=== PATIENT | female | born 1960 | race Caucasian/White ===

== ENCOUNTER → 2019-08-10 11:14 | Outpatient (CLI) | payer OTHER, SELFPAY ==
[2019-06-27 15:17] VITALS: BMI 26.4
[2019-08-10 13:07] LABS: Cholesterol 181 mg/dL (200); High Density Lipoprotein 66 mg/dL; Triglycerides 74 mg/dL; Very Low Density Lipoprotein 15 mg/dL (5-40)
== END ==
PROVIDERS: PCP Family Medicine; Referring Provider Family Medicine; Visit Provider Family Medicine
DX: E78.5 Hyperlipidemia, unspecified (principal)
CPT/HCPCS: 36415; 80061

== ENCOUNTER → 2021-03-26 15:39 | Outpatient (CLI) | payer OTHER, SELFPAY ==
[2021-03-26 17:11] LABS: ALB/GLOB Ratio 0.8 RATIO (0.9-2.4); AST(SGOT) 20 U/L (15-37); Alanine Aminotransfer ALT/SGPT 29 U/L (13-56); Albumin, Serum 3.4 g/dL (3.2-5.0); Alkaline Phosphatase 131 U/L (45-117); Anion Gap 7 (5-15); BUN 15 mg/dL (7-18); BUN/Creat Ratio 19.8 RATIO (10-20); Calcium,Total 8.9 mg/dL (8.5-10.1); Chloride 107 mmol/L (98-107); Creatinine, Serum 0.76 mg/dL (0.55-1.02); EST Glomerular Filtration Rate 83 mL/min (>60); Est Glom Filt Rate - Afr Amer 101 mL/min (>60); Globulin 4.1 g/dL (2.2-4.2); Glucose 91 mg/dL (74-106); Protein, Total 7.5 g/dL (6.4-8.2); Sodium Level 140 mmol/L (136-145)
== END ==
PROVIDERS: PCP Family Medicine; Referring Provider Family Medicine; Visit Provider Family Medicine
DX: E78.5 Hyperlipidemia, unspecified (principal)
CPT/HCPCS: 36415; 80053

== ENCOUNTER 2021-06-25 14:18 | Outpatient (CLI) | payer BC, SELFPAY ==
--- NOTE | 2021-06-25 14:21 | RAD_ITS ---
STUDY: X-RAY - LEFT FOOT CLINICAL: Female, 60 years old. Foot pain TECHNIQUE: 3 view(s) of the foot. COMPARISON: None. FINDINGS: There is an enthesophyte involving the posterior superior calcaneus at the site of insertion of the Achilles tendon. Small plantar spur. Normal visualized subtalar, talonavicular, calcaneocuboid, tarsal and tarsometatarsal articulations. Normal metatarsi. There is degenerative arthrosis of the metatarsophalangeal joint of the hallux . There is a bipartite tibial sesamoid. Normal interphalangeal joint of the great toe. Normal phalanges of the great toe. Normal second through fifth metatarsophalangeal joints. Normal interphalangeal joints and phalanges of the lesser toes. The soft tissue structures are unremarkable. RAD/Foot min 3 Views IMPRESSION: Degenerative changes at the first metatarsophalangeal joint. Calcaneal spurs. Electronically Signed: Carlo Hernandez MD at 15:30 EST , Service support ,
== END 2021-06-25 23:59 | disposition short-term general hospital (02) ==
LOC: MTRAD 14:20
PROVIDERS: PCP Family Medicine; Referring Provider Family Medicine; Visit Provider Family Medicine
DX: M79.672 Pain in left foot (principal)
CPT/HCPCS: 73630

== ENCOUNTER 2021-07-23 11:00 | Outpatient (RCR) | payer BC, SELFPAY ==
--- NOTE | 2021-07-09 15:39 | HP.PTEVAL_ITS ---
Patient's Visit Information FILI MARRUFO is a 60 year old F referred to Physical Therapy by Dr. Willian Lucero DPM with a diagnosis of LEFT PERNOEUS BREVIS TENDONOATHY. Date of Evaluation: 07/09/21 Physical Therapist: Jeferson Navarro, PT, Cert MDT, OCS - Visit Plan Frequency: 1x/Week Duration: 4-6 Weeks Plan: PT INTERVENTIONS WITH STRETCHING G-S ,ECCENTIC STRENGTHENING PERONEOUS ,PROPRIOCEPTION - Subjective This 60 y/o female presents to physical therapy with left peroneus brevis tendonopathy . Patient has had ~ 2 months without predisposing factors. Initially, tried over counter orthotics. Patient seen DR recommended PT for eccentric strengthening. Patient did have incident of sleeping and falling in summer. Patient does state she supinates. Patient reports getting . Patient located lateral foot peroneus. Patient was provide meloxicam. Aggravating being on it too long. Denies paresthesia/tingling. Patient goals to learn ex's. Patient had x-rays had spur on heel. 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 SOCIAL: single - Objective POSTURE: PES CAVUS. GAIT: reciprocal pattern normal jordi. NEURO: denies paresthesia/tingling. PALAPTION: unremarkable. EDEMA: absent. AROM: dorsiflexion 5 degrees ,eversion 5 degrees, inversion 40 degrees , plantarflexion 65 degrees. MMT: ankle dorsiflexion, peroneus , posteriortibials 4/5 ,G-S 4/5. FLEXABLITY : min tight G-S. PROPRIOCEPTION: INTACT - Balance/Special Test Scores Lower Extremity Functional Score: 59 - Goals Goal 1:: Patient to be I with HEP strengthening ankle Goal Time Frame: 4-6 Weeks Goal 2:: Patient to demonstrated 75% improve of left ankle for gait Goal Time Frame: 4-6 Weeks Goal 3:: Patient to increase strength ankle 5/5 to improve function Goal Time Frame: 4-6 Weeks Goal 4:: Patient to improve LFES score by 5 points to improve gait and strength Goal Time Frame: 4-6 Weeks - Rehabilitation Potential Physical Therapy Diagnosis: This patient developed peroneus brevis tendinopathy with Rehabilitation Potential: Good - Anticipated Interventions Patient/Client Instruction: Educate patient on: Condition, Plan of Care For the Purpose of:: To decrease pain, To increase ROM, To improve muscle performance and motor function, To increase tolerance to activity/condition/position, To improve ability of physical actions for home/community/work/leisure, To improve health of tissue, To decrease soft tissue restriction, To increase flexibility/ROM Therapeutic Exercise to Include: Strength training, Balance training, Coordination, Active ROM Comment: PROPRIOCEPTION For the Purpose of:: To decrease pain, To increase ROM, To improve muscle performance and motor function, To improve ability to perform ADL's, To increase tolerance to activity/condition/position, To improve ability of physical actions for home/community/work/leisure, To decrease soft tissue restriction, To increase flexibility/ROM Thank you for the opportunity to evaluate your patient. For Medicare and Medicare HMO plans, please review the plan of care and approve it. It will need to be FAXED BACK to us at [phone] for Medicare purposes. For Medicare only, by signing this I certify the plan of care. Please let me know if there are questions or concerns regarding this plan of care. Physician Signature: Date:
--- NOTE | 2021-12-09 13:39 | HP.PTDCNRP_ITS ---
FLII MARRUFO was seen in my office for initial evaluation on 07/09/21. The following Plan of Care was established for this patient: Initial Frequency: 1x/Week Initial Duration: 4-6 Weeks Patient/Client Instruction: Educate patient on: Condition, Plan of Care For the Purpose of:: To decrease pain, To increase ROM, To improve muscle performance and motor function, To increase tolerance to activity/condition/position, To improve ability of physical actions for home/community/work/leisure, To improve health of tissue, To decrease soft tissue restriction, To increase flexibility/ROM Therapeutic Exercise to Include: Strength training, Balance training, C oordination, Active ROM For the Purpose of:: To decrease pain, To increase ROM, To improve muscle performance and motor function, To improve ability to perform ADL's, To increase tolerance to activity/condition/position, To improve ability of physical actions for home/community/work/leisure, To decrease soft tissue restriction, To increase flexibility/ROM This patient was last seen in our office . Pertinent comments regarding their Physical therapy will appear below: Patient seen for peroneal tendonitis for strengthening and HEP THUS D/C At this point I will be discontinuing this patient from physical therapy. I would be happy to see this patient again in the future if found appropriate by the physician. Thank you! Jeferson Navarro, PT, Cert MDT, OCS Balance/Gait/Functional tests - Balance/Special Test Scores Lower Extremity Functional Score: 59
== END 2021-07-23 19:00 | disposition home or self-care (01) ==
LOC: PT 11:00
PROVIDERS: PCP Family Medicine; Referring Provider Podiatrist; Visit Provider Podiatrist
DX: M76.72 Peroneal tendinitis, left leg (principal)
CPT/HCPCS: 97110; 97162

== ENCOUNTER → 2022-03-24 | Outpatient (CLI) | payer OTHER, SELFPAY ==
[2022-03-24 18:08] LABS: ALB/GLOB Ratio 0.9 RATIO (0.9-2.4); AST(SGOT) 23 U/L (15-37); Alanine Aminotransfer ALT/SGPT 25 U/L (13-56); Albumin, Serum 3.6 g/dL (3.2-5.0); Alkaline Phosphatase 134 U/L (45-117); Anion Gap 10 (5-15); BUN 14 mg/dL (7-18); BUN/Creat Ratio 17.3 RATIO (10-20); Calcium,Total 9.4 mg/dL (8.5-10.1); Chloride 106 mmol/L (98-107); Cholesterol 245 mg/dL (200); Creatinine, Serum 0.81 mg/dL (0.55-1.02); EST Glomerular Filtration Rate 77 mL/min (>60); Est Glom Filt Rate - Afr Amer 93 mL/min (>60); Glucose 98 mg/dL (74-106); High Density Lipoprotein 66 mg/dL; Potassium 4.1 mmol/L (3.5-5.1); Protein, Total 7.6 g/dL (6.4-8.2); Sodium Level 140 mmol/L (136-145); Triglycerides 101 mg/dL; Very Low Density Lipoprotein 20 mg/dL (5-40)
== END | disposition home or self-care (01) ==
LOC: BIMLAB 16:10
PROVIDERS: PCP Family Medicine; Referring Provider Family Medicine; Visit Provider Family Medicine
DX: E78.5 Hyperlipidemia, unspecified (principal)
CPT/HCPCS: 36415; 80053; 80061

== ENCOUNTER 2022-03-25 05:34 | Emergency (ER) | payer OTHER, SELFPAY ==
[2022-03-25 05:36] VITALS: BP 146/96; PULSE 83; RESP 18; TEMP 36.6; O2SAT 97; BMI 28.1
--- NOTE | 2022-03-25 06:47 | EDS_ITS ---
HPI History of Present Illness Chief Complaint: Laceration Narrative Narrative: Patient is a 61-year-old female with history of hyperlipidemia. She was at work this morning when she stumbled and fell backwards striking the back of her head on a small table. She denies any loss of consciousness or blood thinner use or history of bleeding disorder. She states she was able to get back up shortly after the fall but when she put her hand to her head there was blood and was concerned that she may need some type of closure such as sutures or madison presents for evaluation. She also reports she has noticed some pain in her low back diffusely that worsens with motion after the fall. However she denies any numbness tingling or weakness or any hematuria. [facility] Medical History COVID-19 GERD (gastroesophageal reflux disease) Hyperlipemia No pertinent past medical history Home Medications atorvastatin 20 mg tablet 20 mg PO DAILY #90 tabs 03/24/22 [Rx Last Taken Unknown] omeprazole magnesium 20 mg tablet,delayed release (Prilosec OTC) 20 mg PO DAILY 03/24/22 [History Last Taken Unknown] methocarbamol 500 mg tablet 1,000 mg PO 4X/DAY PRN PRN Muscle pain/spasm #56 tabs 03/25/22 [Rx Last Taken Unknown] Allergy/AdvReac Type Severity Reaction Status Date / Time Sulfa (Sulfonamide Allergy Intermediate Rash Verified 03/25/22 05:40 Antibiotics) Family History Grandfather Colon cancer Diabetes Myocardial infarction Cancer skin Father Diabetes Myocardial infarction Grandmother Breast cancer Other Hyperlipemia Osteoporosis Surgical History History of colonoscopy Social History Smoking Status: Never smoker alcohol intake: current alcohol intake frequency: holidays/special occasions only substance use type: does not use what type of physical activity do you participate in: none ROS ROS ED Constitutional Constitutional ED: Denies chills or fever(s) Eyes Eyes: Denies change in vision ENT ENT ED: Denies sore throat Cardiovascular Cardiovascular: Denies chest pain Respiratory/Chest Respiratory/Chest: Denies cough or dyspnea Gastrointestinal Gastrointestinal: Denies abdominal pain, diarrhea, nausea or vomiting Genitourinary Genitourinary ED: Denies dysuria or hematuria Musculoskeletal Musculoskeletal: Reports back pain; Denies neck pain Integumentary Reports other Details: Positive scalp laceration ; Denies rash Neurologic Neurologic: Denies headache(s), paresthesias or weakness Hematologic/Lymphatic Hematologic/Lymphatic: Denies easy bleeding or easy bruising EXAM Physical Exam Const Vital Signs: 03/25/22 05:36 Temperature 97.9 F Temperature Source Temporal Pulse Rate 83 Respiratory Rate 18 Blood Pressure 146/96 H Blood Pressure Mean 112 Pulse Ox 97 Oxygen Delivery Method Room Air Positive well nourished and well developed General Appearance ED: well developed HEENT HEENT Narrative: Patient has a Y-shaped subcutaneous layer deep laceration to the upper portion of the occipital scalp. There is no foreign body. There is minimal ooze of blood noted. The laceration is approximately 2.5 cm in size. There is a small 2 x 2 centimeter hematoma surrounding the laceration. No signs of depressed or basilar skull fracture Eyes PERRL and EOMs intact bilaterally Neck supple Neck Narrative: No bony deformity or step-off of the cervical spine no midline pain with palpation Resp normal respiratory effort and clear to auscultation bilaterally Cardio regular rate and regular rhythm Back/Spine Back/Spine Narrative: No bony deformity or step-off of the thoracic or lumbar spine no midline pain with palpation. No saddle anesthesia. Negative straight leg raise. No clonus or Babinski. Patellar reflexes are plus 2 out of 4 bilaterally are equal and symmetric. Extremity normal to inspection Neuro oriented x3 and CN's II-XII intact bilaterally Sensorium / Orientation: alert Psych mental status grossly normal Skin Skin Narrative: Scalp hematoma and laceration as documented above MDM MDM MDM Narrative Medical decision making narrative: Patient presented to the ER after mechanical fall so there was no need for cardiac or syncope work-up. She did strike her head around the occiput and we discussed obtaining a head CT to ensure there is no underlying skull fracture or brain bleed. Patient does not take blood thinners or have a bleeding disorder she did not lose consciousness nor does she have signs or symptoms consistent with a concussion. She states that this time as my clinical suspicion for skull fracture or brain bleed is low she does not want a CT obtained. We also discussed obtaining an x-ray of the low back as she has pain after the fall but as there is no midline pain along the spine she does not wish to have an x-ray either. Therefore patient will prescribe Robaxin to help with muscular spasm from the fall. Her wound was stapled as documented below. We discussed possibly updating tetanus but as concern for this is low based on the trauma she does not want that given. Therefore at this time as the wound is closed there are no other signs of trauma and no obvious changes to suggest skull fracture or brain bleed she is safe for discharge Patient had her scalp wound cleaned with chlorhexidine. The laceration was anesthetized with 5 mL of 2% lidocaine with epinephrine in local fashion. Then 8 madison were placed across the laceration/wound to bring the edges together good approximation. Patient tolerated the procedure well without complication. Discharge Plan Triage Chief Complaint: Laceration ED Provider: Paul Monique Dx/Rx/DC Orders Clinical Impression: Closed head injury, Laceration of occipital scalp, Acute lumbosacral myofascial strain, Accidental fall Instructions: Understanding Lumbosacral Strain, ED Laceration: All Closures Prescriptions: New methocarbamol 500 mg tablet 1,000 mg PO 4X/DAY PRN PRN (Reason: Muscle pain/spasm) Qty: 56 0RF No Action omeprazole magnesium [Prilosec OTC] 20 mg tablet,delayed release (DR/EC) 20 mg PO DAILY atorvastatin 20 mg tablet 20 mg PO DAILY Qty: 90 2RF Stand Alone Forms: Work Status Form Primary Care Provider: Alejandro Granda Referrals: Alejandro Granda, DO [Primary Care Provider] - Activity Restrictions/Additional Instructions: Please continue to stretch and heat your low back to help reduce pain and speed healing. Please see your family doctor return to the ER or contact Workmen's Compensation to have your madison removed in 10 to 14 days Disposition Disposition: Home, Self Care
== END 2022-03-25 07:08 | disposition home or self-care (01) ==
PROVIDERS: Emergency Provider Emergency Medicine; PCP Family Medicine; Visit Provider Emergency Medicine
DX: S01.01XA Laceration without foreign body of scalp, initial encounter (principal); S39.012A Strain of muscle, fascia and tendon of lower back, initial encounter; E78.5 Hyperlipidemia, unspecified; W18.09XA Striking against other object with subsequent fall, initial encounter; Z79.899 Other long term (current) drug therapy
CPT/HCPCS: 12001; 99283

== ENCOUNTER → 2022-11-30 | Outpatient (CLI) | payer OTHER, SELFPAY ==
[2022-11-30 17:41] LABS: ALB/GLOB Ratio 1.1 RATIO (0.9-2.4); AST(SGOT) 29 U/L (15-37); Alanine Aminotransfer ALT/SGPT 26 U/L (13-56); Albumin, Serum 3.7 g/dL (3.2-5.0); Alkaline Phosphatase 104 U/L (45-117); Anion Gap 8 (5-15); BUN 17 mg/dL (7-18); BUN/Creat Ratio 24.4 RATIO (10-20); Calcium,Total 9.6 mg/dL (8.5-10.1); Chloride 106 mmol/L (98-107); Cholesterol 177 mg/dL (200); EST Glomerular Filtration Rate 91 mL/min (>60); Est Glom Filt Rate - Afr Amer 110 mL/min (>60); Globulin 3.5 g/dL (2.2-4.2); Glucose 88 mg/dL (74-106); High Density Lipoprotein 61 mg/dL; Potassium 4.6 mmol/L (3.5-5.1); Protein, Total 7.2 g/dL (6.4-8.2); Sodium Level 140 mmol/L (136-145); Triglycerides 69 mg/dL; Very Low Density Lipoprotein 14 mg/dL (5-40)
== END | disposition home or self-care (01) ==
LOC: BIMLAB 15:52
PROVIDERS: PCP Family Medicine; Referring Provider Family Medicine; Visit Provider Family Medicine
DX: E78.5 Hyperlipidemia, unspecified (principal)
CPT/HCPCS: 36415; 80053; 80061

== ENCOUNTER → 2023-12-30 | Outpatient (CLI) | payer OTHER, SELFPAY ==
[2023-12-30 14:07] LABS: ALB/GLOB Ratio 1.1 RATIO (0.9-2.4); AST(SGOT) 19 U/L (15-37); Alanine Aminotransfer ALT/SGPT 23 U/L (13-56); Albumin, Serum 3.5 g/dL (3.2-5.0); Alkaline Phosphatase 108 U/L (45-117); Anion Gap 6 (5-15); BUN 13 mg/dL (7-18); BUN/Creat Ratio 21.9 RATIO (10-20); Calcium,Total 9.1 mg/dL (8.5-10.1); Chloride 105 mmol/L (98-107); Cholesterol 159 mg/dL (200); Creatinine, Serum 0.59 mg/dL (0.55-1.02); EST Glomerular Filtration Rate 109 mL/min (>60); Est Glom Filt Rate - Afr Amer 132 mL/min (>60); Globulin 3.1 g/dL (2.2-4.2); Glucose 92 mg/dL (74-106); High Density Lipoprotein 67 mg/dL; Potassium 4.5 mmol/L (3.5-5.1); Protein, Total 6.6 g/dL (6.4-8.2); Sodium Level 141 mmol/L (136-145); Triglycerides 63 mg/dL; Very Low Density Lipoprotein 13 mg/dL (5-40)
== END | disposition home or self-care (01) ==
LOC: BIMLAB 08:10
PROVIDERS: PCP Family Medicine; Referring Provider Family Medicine; Visit Provider Family Medicine
DX: E78.5 Hyperlipidemia, unspecified (principal)
CPT/HCPCS: 36415; 80053; 80061

== ENCOUNTER 2025-01-28 07:51 | Day surgery (SDC) | payer OTHER, SELFPAY ==
[2025-01-28] VITALS (8 sets, daily range): BP systolic 81–104; BP diastolic 39–62; PULSE 61–66; RESP 16; TEMP 36.1–36.6; O2SAT 94–100; BMI 22.6
[2025-01-28] MEDS: Lactated Ringers 1,000 ML 15 ML IV (08:32)
--- NOTE | 2025-01-28 08:46 | PRE.ANES_ITS ---
ASA Classification* ASA Classification ASA Classification: 2 Assessment & Plan Anesthesia* Anesthesia Assessment Anesthesia Assessment: Discussed sedation and/or anesthesia options, risks, benefits, and alternatives with patient/parents/legal guardian/POA. Questions invited. The patient/parents/legal guardian/POA seems to understand and agrees to proceed with anesthesia plan. Reviewed the physical assessment, medical history, allergy history and patient home medications list prior to surgery/procedure/anesthetic and documented any changes. Performed airway and anesthesia risk assessments. Anesthesia Type Anesthesia Type: MAC History Source History Obtained from:: Patient and Chart Anesthesia Focused Assessment* Temperature: 97 F Pulse Rate: 66 Blood Pressure: 100/56 Respiratory Rate: 16 Pulse Ox: 100 Oxygen Delivery Method: Room Air Airway Assessment Mouth opens: >3 cm Mallampati Score: IV Teeth Condition: Caps/Crowns (Patient has several crowns. They all tight they are all tight) Neck Range of motion (ROM): Full ROM Labs Anesthesia Preop lab: CBC CHEMISTRY Potassium 4.5 mmol/L (3.5-5.1) 12/30/23 08:10 12/30/23 Sodium 141 mmol/L (136-145) 12/30/23 08:10 12/30/23 BUN 13 mg/dL (7-18) 12/30/23 08:10 12/30/23 Creatinine 0.59 mg/dL (0.55-1.02) 12/30/23 08:10 12/30/23 Glucose 92 mg/dL (74-106) 12/30/23 08:10 12/30/23 COAG Pre-Assessment Diagnosis/Proposed Procedure Planned Operative Procedure(s): CSCOPE Anesthesia History Anesthesia History - accounting representative: Anesthesia History - accounting representative Hx Hospitalization No 01/24/25 15:37 Any Problems With Anesthesia No 01/24/25 15:37 Cholinesterase deficiency No 01/24/25 15:37 You/Your Family Experience No 01/24/25 15:37 fever (hyperthermia) with Relationship Recent Exposure to Contagious No 01/28/25 08:27 Disease Does patient have nerve No 01/24/25 15:37 stimulator Patient instructed to have device shut off --Does patient have Pacemaker No 01/28/25 08:27 or ICD? When Was Last Pacemaker Check QUESTION #4 FULL TEXT: You/Your Family Experience fever (hyperthermia) with Anesthesia Last Oral Intake Last Oral intake: Last Oral Intake NPO since 22:30 01/28/25 08:27 Meds taken in AM with sips of No 01/28/25 08:27 water? Meds patient instructed to take am of surgery PONV PONV - accounting representative: PONV - accounting representative Female Yes 01/24/25 15:37 HX of Motion Sickness Yes 01/24/25 15:37 HX of N/V After Surgery No 01/24/25 15:37 Non-Smoker Yes 01/24/25 15:37 Duration of Surgery greater No 01/24/25 15:37 than 60 minutes Number of Risk Factors 3 01/24/25 15:37 PONV Score Moderate Risk 01/24/25 15:37 Height & Weight Height & Weight: Anesthesia: Height & Weight Height 5 ft 5 in 01/28/25 08:27 Weight: 61.8 kg 01/28/25 08:27 Body Mass Index (BMI) 22.6 01/28/25 08:27 Respiratory Assessment Respiratory Assessment - accounting representative: Respiratory Tract Infection Hx - accounting representative Hx Respiratory Tract Infection No 01/24/25 15:37 STOP Sleep Apnea STOP Sleep Apnea - accounting representative: STOP Sleep Apnea - accounting representative Hx Hypertension No 01/24/25 15:37 Hx Sleep Apnea No 01/24/25 15:37 CPAP BIPAP Do you snore loudly (louder No 01/24/25 15:37 than talking or can be heard Do you often feel tired/ No 01/24/25 15:37 fatigued/ sleepy during daytime? Has anyone observed you stop No 01/24/25 15:37 breathing during sleep? STOP Results Negative 01/24/25 15:37 QUESTION #5 FULL TEXT : Do you snore loudly (louder than talking or can be heard through closed doors)? Tobacco Use History Tobacco Use History - accounting representative: Tobacco Use History - accounting representative Tobacco Use Smoking Status Never smoker 01/24/25 15:37 Hx Tobacco Use No 01/24/25 15:37 Years Smoking Packs Smoked per Day Smoking Cessation Date was within the last 15 years Hx Smoking Cessation Date Hx Smoking Cessation Counseling Hematologic Medial History Hematologic Hx - accounting representative: Hematologic Medical Hx - vocational rehabilitation specialist Hx of Blood Transfusion No 01/24/25 15:37 Hx of Transfusion in last 3 No 01/24/25 15:37 Months Date of Last Transfusion (if within last 3 months) Ever experience any problems No 01/24/25 15:37 with transfusion(s)? Specify any problems Hx of Preganancy in last 3 N/A 01/24/25 15:37 Months Nurse Filling Out Transfusion NBUCHER 01/24/25 15:37 & Questions: Date: 01/24/25 01/24/25 15:37 Time: 15:38 01/24/25 15:37 Patient unable to answer at this time (ie. confused, unrespo /Reproduction History /Reproductive History - accounting representative: /Reproductive Hx- accounting representative Hx Now No 01/24/25 15:37 Gestational Age (in weeks): EDC: Hx Hx Para Hx Section SAB No 01/24/25 15:37 Active Medications Active Medications: Current Medications Generic Name Dose Route Start Last Admin Trade Name Freq PRN Reason Stop Dose Admin Lactated Ringer's 1,000 mls @ 15 mls/hr 01/28/25 08:15 01/28/25 08:32 IV 15 mls/hr .Q48H JACLYN Administration PFSH Medical History Wears glasses Post-menopausal High cholesterol GERD (gastroesophageal reflux disease) Hyperlipemia COVID-19 No pertinent past medical history Home Medications ?Medication ?Instructions ?Recorded ?Last Taken ?Type omeprazole magnesium 20 mg 20 mg PO DAILY PRN gastric reflux 11/30/22 Unknown History tablet,delayed release (Prilosec OTC) atorvastatin 20 mg tablet 20 mg PO DAILY #90 tabs 12/1101/27/25 Rx Allergy/AdvReac Type Severity Reaction Status Date / Time Sulfa (Sulfonamide Allergy Intermediate Rash Verified 01/28/25 08:25 Antibiotics) Family History Grandfather Colon cancer Diabetes Myocardial infarction Cancer skin Father Diabetes Myocardial infarction Grandmother Breast cancer Other Hyperlipemia Osteoporosis Surgical History History of colonoscopy Social History adopted: No household members: spouse number of children: 2 current occupational status: employed current occupation: [employer] pets and animals: Yes (1) pets and animals: dog(s) sexually active: No Smoking Status: Never smoker alcohol intake: current alcohol intake frequency: holidays/special occasions only substance use type: does not use diet: low carbohydrate caffeine: Yes (1-4) Type: coffee what type of physical activity do you participate in: none seatbelt use: always do you feel safe at home: Yes Review of Systems (Anesthesia) ROS Narrative System reviewed and no additional complaints, except as documented.
--- NOTE | 2025-01-28 09:27 | HP.PCM_ITS ---
HPI - General General Date of Service: 01/28/25 HPI Narrative FILI MARRUFO, is a 64 F who presents for screening colonoscopy last colonoscopy was greater than 5 years ago- recommended repeat in 5 years. Do not have the actual reports. patient's grandfathers both had colon cancer patient's liana also had a colostomy in her 20s but not blood relative. Patient has bowel movements daily denies any blood. Patient denies any chronic abdominal pain/nausea/vomiting/reflux. [facility] Medical History Wears glasses Post-menopausal High cholesterol GERD (gastroesophageal reflux disease) Hyperlipemia COVID-19 No pertinent past medical history Home Medications ?Medication ?Instructions ?Recorded ?Last Taken ?Type omeprazole magnesium 20 mg 20 mg PO DAILY PRN gastric reflux 11/30/22 Unknown History tablet,delayed release (Prilosec OTC) atorvastatin 20 mg tablet 20 mg PO DAILY #90 tabs 12/1101/27/25 Rx Allergy/AdvReac Type Severity Reaction Status Date / Time Sulfa (Sulfonamide Allergy Intermediate Rash Verified 01/28/25 08:25 Antibiotics) Family History Grandfather Colon cancer Diabetes Myocardial infarction Cancer skin Father Diabetes Myocardial infarction Grandmother Breast cancer Other Hyperlipemia Osteoporosis Surgical History History of colonoscopy Social History adopted: No household members: spouse number of children: 2 current occupational status: employed current occupation: [employer] pets and animals: Yes (1) pets and animals: dog(s) sexually active: No Smoking Status: Never smoker alcohol intake: current alcohol intake frequency: holidays/special occasions only substance use type: does not use diet: low carbohydrate caffeine: Yes (1-4) Type: coffee what type of physical activity do you participate in: none seatbelt use: always do you feel safe at home: Yes Past Medical/Surgical History Planned Operation Planned Operative Procedure(s): CSCOPE Previous Hospitalizations/Surgeries HX Hospitalizations: No Any Problems With Anesthesia: No You/Your Family Experience Fever (Hyperthermia) With Anes: No Cholinesterase deficiency: No Cardiovascular Hx Chest Pain within Last 2 months: No Hx Heart Attack: No Hx Hypertension: No Hx Cardiac Surgery/Stents/Etc.: No Respiratory Hx Chronic Obstructive Pulmonary Disease (COPD): No Hx Sleep Apnea: No Hx Respiratory Tract Infection/Cold (presently): No Do You Snore Loudly (louder than talking or can be heard): No Do You Often Feel Tired/ Fatigued/ Sleepy Dring Daytime?: No Has Anyone Observed You Stop Breathing During Sleep?: No Result (for STOP score): Negative Hx Smoking: No Smoking Status: Never smoker Neurological Hx Seizures: No Hx Multiple Sclerosis: No Does patient have nerve stimulator: No Blood Disorder Hx Anemia: No Reproduction : No Genitourinary Hx Dialysis: No Musculoskeletal Hx Arthritis: No Endocrine Hx Diabetes: No Thyroid Disease: No Psycho/Social Hx Depression: No Hx Dementia: No Miscellaneous Recent Exposure to Contagious Disease: No Allergies Sulfa (Sulfonamide Antibiotics) Allergy (Intermediate, Verified 01/28/25 08:25) Rash Discharge Is Pt Admitted From a Retirement, or a Senior Living: No After D/C, Where Do you Plan to Go: Return Home Vital Signs Vital Signs Vital Signs: 01/28/25 08:27 01/28/25 08:27 01/28/25 08:50 Temperature 97 F L 97 F L Temperature Source Temporal Pulse Rate 66 66 Respiratory Rate 16 16 Respiratory Pattern Normal Blood Pressure 100/56 L 100/56 L Blood Pressure Mean 70 Blood Pressure Source Monitor Blood Pressure Position Semi-Fowlers Blood Pressure Location Right Arm Pulse Ox 100 100 Oxygen Delivery Method Room Air Room Air Weight Weight: 136 lb 3.931 oz Body Mass Index (BMI) 22.6 Physical Exam Const alert, oriented x3 and no apparent distress HEENT normocephalic and head/scalp atraumatic Resp normal respiratory effort Cardio regular rate GI soft to palpation and non-tender; Negative for non-distended Palpation: Negative for guarding Extremity no clubbing, cyanosis or edema Skin no rashes or lesions noted Neuro CN's II-XII intact bilaterally Psych mental status grossly normal Assessment & Plan Assessment/Plan (1) Family history of colon cancer: Surgery Risks - Colonoscopy I discussed with the patient the risks of the procedure: Yes Risks Include but are not Limited To: Risks include but are not limited to: Bleeding, perforation requiring further surgery, inability to complete colonoscopy requiring barium enema.
--- NOTE | 2025-01-28 10:12 | OP.COLON_ITS ---
Patient Name: Muriel Romo Procedure Date: 01/28/2025 9:36 AM Date of : 1960 Age: 64 Procedure: Colonoscopy Indications: Family history of colon cancer in multiple second-degree relatives Providers: Sravanthi White MD Referring MD: Alejandro Granda Medicines: Monitored Anesthesia Care Patient Profile: This is a 64 year old female. Last Colonoscopy: June 2018. Complications: No immediate complications. Procedure: Pre-Anesthesia Assessment: - Prior to the procedure, a History and Physical was performed, and patient medications and allergies were reviewed. The patient's tolerance of previous anesthesia was also reviewed. The risks and benefits of the procedure and the sedation options and risks were discussed with the patient. All questions were answered, and informed consent was obtained. Prior Anticoagulants: The patient has taken no anticoagulant or antiplatelet agents. ASA Grade Assessment: Per anesthesia. After reviewing the risks and benefits, the patient was deemed in satisfactory condition to undergo the procedure. After I obtained informed consent, the scope was passed under direct vision. Throughout the procedure, the patient's blood pressure, pulse, and oxygen saturations were monitored continuously. The pediatric colonoscope was introduced through the anus and advanced to the cecum, identified by the appendiceal orifice, ileocecal valve and palpation. The colonoscopy was performed without difficulty. The patient tolerated the procedure well. The quality of the bowel preparation was good. Scope In: 9:45:30 AM Scope Withdrawal Time 0 hours 8 minutes 2 seconds Scope Out: 10:04:51 AM Total Procedure Duration Time 0 hours 19 minutes 21 seconds Findings: The perianal and digital rectal examinations were normal. Multiple small-mouthed diverticula were found in the sigmoid colon. The entire examined colon appeared normal on direct and retroflexion views. Impression: - Diverticulosis in the sigmoid colon. - The entire examined colon is normal on direct and retroflexion views. - No specimens collected. Recommendation: - Discharge patient to home. - Resume previous diet. - Continue present medications. - Await pathology results. - Repeat colonoscopy in 10 years for screening purposes-both grandfathers >60 when diagnosed with colon cancer. Procedure Code(s): --- Professional --- 25010, PT, Colonoscopy, flexible; diagnostic, including collection of specimen(s) by brushing or washing, when performed (separate procedure) Diagnosis Code(s): --- Professional --- Z80.0, Family history of malignant neoplasm of digestive organs K57.30, Diverticulosis of large intestine without perforation or abscess without bleeding CPT copyright 2021 [employer]. All rights reserved. The codes documented in this report are preliminary and upon pipe fitter soft copper review may be revised to meet current compliance requirements. MD Sravanthi Camarena MD 01/28/2025 10:12:14 AM This report has been signed electronically. Number of Addenda: 0 Note Initiated On: 01/28/2025 9:36 AM
--- NOTE | 2025-01-28 10:12 | OP.PROVAT_ITS ---
01/28/2025 Alejandro Granda Re : Colonoscopy procedure for Muriel Romo Dear Dr. Granda This procedure was performed on Tuesday, January 28, 2025. My impressions and recommendations are as follows: Impressions : - Diverticulosis in the sigmoid colon. - The entire examined colon is normal on direct and retroflexion views. - No specimens collected. Recommendations : - Discharge patient to home. - Resume previous diet. - Continue present medications. - Await pathology results. - Repeat colonoscopy in 10 years for screening purposes-both grandfathers >60 when diagnosed with colon cancer. My findings are described in the full procedure note, which is enclosed. If I can be of further assistance, please feel free to contact me at Doctor phone number(s): , Work: . Sincerely, MD Sravanthi Camarena MD 01/28/2025 10:12:14 AM This report has been signed electronically.
--- NOTE | 2025-01-28 10:15 | PCM.POST.ANE ---
Anesthesia: Postop Eval I Current Vital Signs Temperature: 98 F Pulse Rate: 62 Blood Pressure: 104/47 Respiratory Rate: 16 Pulse Ox: 97 Oxygen Delivery Method: Room Air Assessment Airway patent: Yes Spontaneous unlabored respirations: Yes Mental status: Asleep nausea: No Vomiting: No Anesthesia Complication: No Fluid Hydration Crystalloid volume administer (ml): 700 Total IV fluid infused: 700 Progress Note Anesthesia document: Postop Eval 1 completed: Yes
== END 2025-01-28 10:59 | disposition home or self-care (01) ==
LOC: EN 07:52 → AC 07:53
PROVIDERS: PCP Family Medicine; Referring Provider Family Medicine; Visit Provider Surgery
PROC: 0DJD8ZZ Inspection of Lower Intestinal Tract, Via Natural or Artificial Opening Endoscopic (ICD-10-PCS; CPT 45378; principal; 2025-01-28 09:10)
DX: Z12.11 Encounter for screening for malignant neoplasm of colon (principal); E78.00 Pure hypercholesterolemia, unspecified; K57.30 Diverticulosis of large intestine without perforation or abscess without bleeding; Z80.0 Family history of malignant neoplasm of digestive organs; K21.9 Gastro-esophageal reflux disease without esophagitis; Z79.899 Other long term (current) drug therapy
CPT/HCPCS: 45378; J2405